=== PATIENT | female | born 1980 | race Caucasian/White ===

== ENCOUNTER 2024-11-13 11:17 | Outpatient (CLI) | payer MEDICAID ==
--- NOTE | 2024-11-13 12:48 | RADIOLOGY REPORT ---
CLINICAL INDICATION: BILATERAL KNEE PAIN S/P FALL TECHNIQUE: 4 radiographic views of the left knee were obtained. Comparison: None FINDINGS/IMPRESSION: There is no evidence of acute fracture or dislocation. The visualized joint space is well maintained. The alignment is anatomical. There is no radiopaque foreign body.
--- NOTE | 2024-11-13 12:48 | RADIOLOGY REPORT ---
CLINICAL INDICATION: BILATERAL KNEE PAIN S/P FALL TECHNIQUE: 4 radiographic views of the right knee were obtained. Comparison: None FINDINGS/IMPRESSION: There is no evidence of acute fracture or dislocation. The visualized joint space is well maintained. The alignment is anatomical. There is no radiopaque foreign body.
== END 2024-11-13 23:59 | disposition home or self-care (01) ==
LOC: RAD 11:17
PROVIDERS: ATTEND Family Medicine
DX: M25.561 Pain in right knee (principal); M25.562 Pain in left knee
CPT/HCPCS: 73564